=== PATIENT | male | born 1950 | race Caucasian/White ===

== ENCOUNTER 2024-07-02 03:14 | Emergency (ER) | payer MEDICARE, OTHER ==
[~2024-07-02] VITALS: Ht 182.9 cm; Wt 93.2 kg
[~2024-07-02 03:14] MED LIST: ACYC400T20 PO; CHLO25TA3 PO; FINA5TAB41 PO; SILD50TA54 PO; TRAM50TA5 PO
[2024-07-02] MEDS: KETOROLAC TROMETHAMINE 30 MG/ML VIAL IM ONE (03:44)
[2024-07-02] MEDS: LIDOCAINE 5% TRANSDERMAL PATCH TD ONE (03:45)
[2024-07-02 04:30] VITALS: BP 134/82; PULSE 74; RESP 18; TEMP 98.3
[2024-07-02] MEDS ORDERED: ACET-3385 PO (05:00)
[2024-07-02] MEDS ORDERED: LIDO700A15 TP (05:00)
[2024-07-02] MEDS ORDERED: IBUP-1492 PO (05:00)
[2024-07-03] MEDS ORDERED: TIZA-211 PO (10:55)
== END 2024-07-02 05:33 | disposition home or self-care (01) ==
LOC: EMS 03:14
DX: S13.4XXA Sprain of ligaments of cervical spine, initial encounter (principal); J45.909 Unspecified asthma, uncomplicated; I10 Essential (primary) hypertension; X58.XXXA Exposure to other specified factors, initial encounter; Y93.89 Activity, other specified; Y92.89 Other specified places as the place of occurrence of the external cause; Y99.8 Other external cause status
CPT/HCPCS: 99285; 70450; 72125; 96372; J1885

== ENCOUNTER 2024-07-03 08:48 | Emergency (ER) | payer MEDICARE, OTHER ==
[~2024-07-03] VITALS: Ht 180.3 cm; Wt 84.1 kg
[~2024-07-03 08:48] MED LIST changes: +ACET-3385 PO; +IBUP-1492 PO; +LIDO700A15 TP
[2024-07-03 08:52] VITALS: BP 176/109; PULSE 80; RESP 18; TEMP 98.4
[2024-07-03] MEDS: KETOROLAC TROMETHAMINE 30 MG/ML VIAL IM ONE (09:48)
[2024-07-03] MEDS: TiZANidine HCL 4 MG TABLET PO ONE (10:21)
[2024-07-03] MEDS ORDERED: TIZA-211 PO (10:55)
== END 2024-07-03 11:07 | disposition home or self-care (01) ==
LOC: EMS 08:56
DX: M62.838 Other muscle spasm (principal); I48.91 Unspecified atrial fibrillation; I10 Essential (primary) hypertension; J45.909 Unspecified asthma, uncomplicated
CPT/HCPCS: 99283; 96372; J1885